=== PATIENT | male | born 1965 | race Caucasian/White ===

== ENCOUNTER 2018-11-20 13:25 | Observation (INO) ==
[2018-11-20] MEDS ORDERED: Ondansetron 4 MG/2 ML VIAL IVP ONE (13:32)
[2018-11-20] MEDS ORDERED: Aspirin 81 MG TAB.CHEW PO ONE (13:43)
[2018-11-20] MEDS ORDERED: *HR* Labetalol 20 MG/4 ML SYRINGE IVP ONE (13:47)
--- NOTE | 2018-11-20 13:50 | Emergency Department Note ---
Disposition Clinical Impression: Hypertensive urgency Nausea and vomiting Qualifiers: Vomiting type: unspecified Vomiting Intractability: non-intractable Qualified Code(s): R11.2 - Nausea with vomiting, unspecified Disposition: Admitted As Inpatient Condition: Fair Time of Disposition: 16:21 General Adult HPI - General Chief complaint: ED Nausea/Vomiting/Diarrhea Stated complaint: nausea Time Seen by Provider: 11/20/18 13:32 Source: patient, EMS Mode of arrival: EMS Limitations: no limitations Nursing Notes Reviewed: Yes Vital Signs Reviewed: Yes - History of Present Illness HPI Narrative: Patient is a 53-year-old male who started to feel sour stomach this morning at 7:30 AM he has vomited several times has felt nauseated, 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 The dental patient coordinator called an ambulance and brought him into the emergency department to be evaluated. Patient is actively vomiting in the room when he arrives, skin is cool and, diaphoretic. States that he has not seen a physician in 20 years, and has missed a couple of doses of his antihypertensive. Does not know the name of it but knows that it begins with an L. He states that he has never had any cardiac surgeries, does not know if he has high cholesterol, only takes the anti-hypertensive. Patient is denying any chest pain, shortness of breath, abdominal pain, numbness or tingling, sore throat, runny nose, cough. Patient states that he does feel lightheaded and dizzy, does feel warm and sweaty, and does feel nauseated. Pain Scale: 2 - Related Data Home Medications Medication Instructions Recorded Confirmed Advil 09/28/18 Previous Rx's Medication Instructions Recorded Indomethacin 50 mg PO BID #20 capsule 09/28/18 Lisinopril [Zestril] 20 mg PO DAILY #30 tablet 09/28/18 PredniSONE [Deltasone] 20 mg PO DAILY #12 tablet 09/28/18 Allergies Allergy/AdvReac Type Severity Reaction Status Date / Time No Known Allergies Allergy Verified 09/28/18 18:44 Constitutional: Reports: fever. Denies: chills ENT ED: Denies: ear pain, throat pain Cardiovascular: Denies: chest pain, palpitations, dyspnea on exertion Respiratory: Denies: cough, dyspnea Gastrointestinal: Reports: nausea, vomiting. Denies: abdominal pain, diarrhea, constipation Musculoskeletal: Denies: back pain, neck pain Integumentary: Denies: rash, abrasion Neurological: Reports: weakness. Denies: headache, numbness, paresthesias Endocrine: Denies: fatigue Allergic/Immunologic: Denies: facial swelling, urticaria Past Medical History - Past Medical History Medical history: Reports: hypertension Surgical history: Reports: no surgical history - Social History Smoking Status: Never smoker Smokeless Tobacco Status: No Alcohol use: Reports: none Drug use: Reports: none Physical Exam - General Limitations: no limitations General appearance: alert, in no apparent distress - Head Head exam: atraumatic, normocephalic - Eye Eye exam: Present: normal appearance, PERRL, EOMI - ENT ENT exam: normal exam, normal oropharynx, mucous membranes moist - Neck Neck exam: Present: normal inspection, full ROM, trachea midline - Chest Chest inspection: Present: normal inspection, symmetric chest wall rise. Absent: tenderness, rash - Respiratory Respiratory exam: Present: normal lung sounds bilaterally. Absent: respiratory distress, wheezes - Cardiovascular Cardiovascular exam: Present: normal rhythm, tachycardia - Abdominal Exam Abdominal exam: Present: soft, Non-Tender - Extremities Exam Extremities exam: Present: normal inspection, full ROM - Back Exam Back exam: Present: normal inspection, full ROM - Neurological Exam Neurological exam: Present: alert, oriented X3 - Psychiatric Psychiatric exam: Present: normal affect, normal mood - Skin Skin exam: Present: warm, normal color, diaphoresis Course Course Narrative: Pt presents with N/V, LH/dizziness after missing several of his doses of HTN meds with elevated BP. Suspect hypertensive emergency. Pt has several cardiac risk factors and has not seen a physician in twenty years. Will performed cardiac workup with additional abd labs. Will admin 10mg labetolol and recheck pressure. - Reevaluation(s) Reevaluation #1: Pt got oral ASA right before he went to CT and when he moved to the table, vomited again. He feels ok now after coming back. BP has come down to 180/100. Pt states that his nausea has improved. States that he was supposed to establish with a doctor after his insurance got set up in November. Time: 15:05 Vital Signs Temperature 97.9 F 11/20/18 13:40 Pulse Rate 97 11/20/18 13:40 Respiratory Rate 20 11/20/18 13:40 Blood Pressure 225/153 11/20/18 13:40 O2 Sat by Pulse Oximetry 98 11/20/18 13:40 Temperature 97.9 F 11/20/18 13:40 Pulse Rate 89 11/20/18 14:46 Respiratory Rate 18 11/20/18 14:46 Blood Pressure 189/111 11/20/18 14:46 O2 Sat by Pulse Oximetry 97 11/20/18 14:46 Oxygen Delivery Oxygen Delivery Room Air Medical Decision Making - MDM Narrative Medical decision making narrative: Pt continues to feel nauseated if he moves. Continues to deny chest pain. Troponin was negative, head CT was negative. Other lab work was mostly unremarkable except for mild leukocytosis with neutrophil predominance as well as elevated glucose at 187. EKG showed changes consistent with ischemia without current infarct. Will admit for hypertensive urgency and cardiac workup. Spoke with hospitalist Dr. Torres who accepts. Pt verbalized understanding and agreement with the plan. Pt's blood pressure improve during hospital course. - Medical Records Medical records reviewed: Yes I reviewed the patient's medical records. - Lab Data Lab results reviewed: Yes I reviewed the patient's lab results. Result diagrams: 11/20/18 14:04 11/20/18 14:04 Lab Results 11/20/18 11/20/18 11/20/18 Range/Units 14:04 14:04 14:04 WBC 11.3 H (4.3-11.1) K/mcL RBC 6.11 H (4.19-5.50) M/mcL Hgb 17.6 H (12.9-16.9) g/dL Hct 54.5 H (37.5-50.1) % MCV 89.2 (83.0-100.0) fL MCH 28.8 (28.0-33.3) pg MCHC 32.3 (31.6-35.5) g/dL RDW 12.8 (11.5-14.5) % Plt Count 184 (140-400) K/mcL MPV 10.9 (9.4-12.4) fL Immature Gran % 0.4 (0-4) % Seg Neutrophils % 87.3 % Lymphocytes % 9.4 % Monocytes % 2.6 % Eosinophils % 0.1 % Basophils % 0.2 % Neutrophils # 9.9 H (1.6-8.9) K/mcL Lymphocytes # 1.1 (0.6-4.6) K/mcL Monocytes # 0.3 (0.0-1.3) K/mcL Eosinophils # 0.0 (0.0-0.6) K/mcL Basophils # 0.0 (0.0-0.2) K/mcL Sodium 142 (136-145) mEq/L Potassium 3.5 (3.5-5.1) mEq/L Chloride 106 (98-107) mEq/L Carbon Dioxide 23 (23-29) mEq/L BUN 15 (6-20) mg/dL Creatinine 0.97 (0.70-1.30) mg/dL Est GFR ( Amer) > 60 (> 60) Est GFR (Non-Af Amer) > 60 (> 60) BUN/Creatinine Ratio 15 (6-26) Glucose 187 H (70-105) mg/dL Calculated Osmolality 300 (280-300) Calcium 9.2 (8.6-10.3) mg/dL Magnesium (1.6-2.6) mg/dL Total Bilirubin 0.4 (0.3-1.0) mg/dL Direct Bilirubin 0.1 (0.0-0.2) mg/dL Indirect Bilirubin 0.3 (0.0-1.2) mg/dL AST 16 (13-39) Units/L ALT 18 (7-52) Units/L Alkaline Phosphatase 76 (34-104) Units/L Troponin I < 0.03 (< 0.04) ng/mL Serum Total Protein 7.8 (6.4-8.9) g/dL Albumin 4.5 (3.5-5.7) g/dL Globulin 3.3 (2.4-3.5) g/dL Albumin/Globulin Ratio 1.4 (1.1-2.2) Lipase 7 L (11-82) Units/L 11/20/18 Range/Units 14:04 WBC (4.3-11.1) K/mcL RBC (4.19-5.50) M/mcL Hgb (12.9-16.9) g/dL Hct (37.5-50.1) % MCV (83.0-100.0) fL MCH (28.0-33.3) pg MCHC (31.6-35.5) g/dL RDW (11.5-14.5) % Plt Count (140-400) K/mcL MPV (9.4-12.4) fL Immature Gran % (0-4) % Seg Neutrophils % % Lymphocytes % % Monocytes % % Eosinophils % % Basophils % % Neutrophils # (1.6-8.9) K/mcL Lymphocytes # (0.6-4.6) K/mcL Monocytes # (0.0-1.3) K/mcL Eosinophils # (0.0-0.6) K/mcL Basophils # (0.0-0.2) K/mcL Sodium (136-145) mEq/L Potassium (3.5-5.1) mEq/L Chloride (98-107) mEq/L Carbon Dioxide (23-29) mEq/L BUN (6-20) mg/dL Creatinine (0.70-1.30) mg/dL Est GFR ( Amer) (> 60) Est GFR (Non-Af Amer) (> 60) BUN/Creatinine Ratio (6-26) Glucose (70-105) mg/dL Calculated Osmolality (280-300) Calcium (8.6-10.3) mg/dL Magnesium 2.1 (1.6-2.6) mg/dL Total Bilirubin (0.3-1.0) mg/dL Direct Bilirubin (0.0-0.2) mg/dL Indirect Bilirubin (0.0-1.2) mg/dL AST (13-39) Units/L ALT (7-52) Units/L Alkaline Phosphatase (34-104) Units/L Troponin I (< 0.04) ng/mL Serum Total Protein (6.4-8.9) g/dL Albumin (3.5-5.7) g/dL Globulin (2.4-3.5) g/dL Albumin/Globulin Ratio (1.1-2.2) Lipase (11-82) Units/L - Radiology Data Radiology results reviewed: Yes I reviewed the patient's radiology results. Chest X-Ray 11/20/18 13:43 IMPRESSION: Cardiomegaly and pulmonary vascular congestion. D/ / Elio Hardin MD / Elio Hardin MD Interpreting Provider: Elio Hardin MD Head CT 11/20/18 14:01 IMPRESSION: No acute intracranial abnormality. D/ / Asad Ramon MD / Asad Ramon MD Interpreting Provider: Asad Ramon MD - EKG Data EKG #1 EKG attestation: Yes I reviewed and interpreted this EKG. EKG results narrative: HR 99, rhythm sinus, left axis. FL 179, QRS 118, QTc 497. 0.5mm ST elevation in aVR, 1mm ST elevation in V1, V2, V3, V4, 1mm ST depression in I, aVL. Abnormal EKG concerning for ischemia with borderline prolonged QTc. Heart Score - Score History: Moderately Suspicious EKG: Non Specific repolarisation Disturbance Age: 45-65 Risk Factors: Equal/Greater than 3 risk factor or history of atherosclerotic disease Troponin: Less than normal limit HEART Score Total: 5
[2018-11-20 14:26] LABS: Basophils % 0.2 %; Eosinophils % 0.1 %; Hematocrit 54.5 % (37.5-50.1); Hemoglobin 17.6 g/dL (12.9-16.9); Immature Granulocytes % 0.4 % (0-4); Lymphocytes # 1.1 K/mcL (0.6-4.6); Lymphocytes % 9.4 %; Mean Corpuscular HGB Conc 32.3 g/dL (31.6-35.5); Mean Corpuscular Hemoglobin 28.8 pg (28.0-33.3); Mean Corpuscular Volume 89.2 fL (83.0-100.0); Mean Platelet Volume 10.9 fL (9.4-12.4); Monocytes # 0.3 K/mcL (0.0-1.3); Monocytes % 2.6 %; Neutrophils # 9.9 K/mcL (1.6-8.9); Platelet Count 184 K/mcL (140-400); Red Blood Count 6.11 M/mcL (4.19-5.50); Red Cell Distribution Width 12.8 % (11.5-14.5); Segmented Neutrophils % 87.3 %
[2018-11-20 14:34] LABS: Albumin 4.5 g/dL (3.5-5.7); Albumin/Globulin Ratio 1.4 (1.1-2.2); Bilirubin,Direct 0.1 mg/dL (0.0-0.2); Bilirubin,Indirect 0.3 mg/dL (0.0-1.2); Bilirubin,Total 0.4 mg/dL (0.3-1.0); Globulin 3.3 g/dL (2.4-3.5); Total Protein 7.8 g/dL (6.4-8.9)
[2018-11-20 14:36] LABS: Troponin I < 0.03 ng/mL (< 0.04)
[2018-11-20 14:37] LABS: BUN/Creatinine Ratio 15 (6-26); Blood Urea Nitrogen 15 mg/dL (6-20); Calcium 9.2 mg/dL (8.6-10.3); Carbon Dioxide 23 mEq/L (23-29); Chloride 106 mEq/L (98-107); Glucose 187 mg/dL (70-105); Osmolality,Calculated 300 (280-300); Potassium 3.5 mEq/L (3.5-5.1); Sodium 142 mEq/L (136-145); eGFR For Non-African Americans > 60 (> 60)
--- NOTE | 2018-11-20 15:42 | Emergency Department Note ---
Disposition Clinical Impression: Hypertensive urgency, Nausea and vomiting Disposition: Admitted As Inpatient Condition: Good Forms: ED Satisfaction Letter General Adult HPI - General Chief complaint: ED Nausea/Vomiting/Diarrhea Stated complaint: nausea Time Seen by Provider: 11/20/18 13:32 Source: patient, EMS Mode of arrival: EMS Limitations: no limitations - History of Present Illness Pain Scale: 2 - Related Data Home Medications Medication Instructions Recorded Confirmed Advil 09/28/18 Previous Rx's Medication Instructions Recorded Indomethacin 50 mg PO BID #20 capsule 09/28/18 Lisinopril [Zestril] 20 mg PO DAILY #30 tablet 09/28/18 PredniSONE [Deltasone] 20 mg PO DAILY #12 tablet 09/28/18 Allergies Allergy/AdvReac Type Severity Reaction Status Date / Time No Known Allergies Allergy Verified 09/28/18 18:44 Constitutional: Reports: fever. Denies: chills ENT ED: Denies: ear pain, throat pain Cardiovascular: Denies: chest pain, palpitations, dyspnea on exertion Respiratory: Denies: cough, dyspnea Gastrointestinal: Reports: nausea, vomiting. Denies: abdominal pain, diarrhea, constipation Musculoskeletal: Denies: back pain, neck pain Integumentary: Denies: rash, abrasion Neurological: Reports: weakness. Denies: headache, numbness, paresthesias Endocrine: Denies: fatigue Allergic/Immunologic: Denies: facial swelling, urticaria Past Medical History - Past Medical History Medical history: Reports: hypertension Surgical history: Reports: no surgical history - Social History Smoking Status: Never smoker Smokeless Tobacco Status: No Alcohol use: Reports: none Drug use: Reports: none Physical Exam - General Limitations: no limitations General appearance: alert, in no apparent distress Course Vital Signs Temperature 97.9 F 11/20/18 13:40 Pulse Rate 97 11/20/18 13:40 Respiratory Rate 20 11/20/18 13:40 Blood Pressure 225/153 11/20/18 13:40 O2 Sat by Pulse Oximetry 98 11/20/18 13:40 Temperature 97.9 F 11/20/18 13:40 Pulse Rate 89 11/20/18 14:46 Respiratory Rate 18 11/20/18 14:46 Blood Pressure 189/111 11/20/18 14:46 O2 Sat by Pulse Oximetry 97 11/20/18 14:46 Oxygen Delivery Oxygen Delivery Room Air Medical Decision Making - Medical Records Medical records reviewed: Yes I reviewed the patient's medical records. - Lab Data Lab results reviewed: Yes I reviewed the patient's lab results. Result diagrams: 11/20/18 14:04 11/20/18 14:04 Lab Results 11/20/18 11/20/18 11/20/18 Range/Units 14:04 14:04 14:04 WBC 11.3 H (4.3-11.1) K/mcL RBC 6.11 H (4.19-5.50) M/mcL Hgb 17.6 H (12.9-16.9) g/dL Hct 54.5 H (37.5-50.1) % MCV 89.2 (83.0-100.0) fL MCH 28.8 (28.0-33.3) pg MCHC 32.3 (31.6-35.5) g/dL RDW 12.8 (11.5-14.5) % Plt Count 184 (140-400) K/mcL MPV 10.9 (9.4-12.4) fL Immature Gran % 0.4 (0-4) % Seg Neutrophils % 87.3 % Lymphocytes % 9.4 % Monocytes % 2.6 % Eosinophils % 0.1 % Basophils % 0.2 % Neutrophils # 9.9 H (1.6-8.9) K/mcL Lymphocytes # 1.1 (0.6-4.6) K/mcL Monocytes # 0.3 (0.0-1.3) K/mcL Eosinophils # 0.0 (0.0-0.6) K/mcL Basophils # 0.0 (0.0-0.2) K/mcL Sodium 142 (136-145) mEq/L Potassium 3.5 (3.5-5.1) mEq/L Chloride 106 (98-107) mEq/L Carbon Dioxide 23 (23-29) mEq/L BUN 15 (6-20) mg/dL Creatinine 0.97 (0.70-1.30) mg/dL Est GFR ( Amer) > 60 (> 60) Est GFR (Non-Af Amer) > 60 (> 60) BUN/Creatinine Ratio 15 (6-26) Glucose 187 H (70-105) mg/dL Calculated Osmolality 300 (280-300) Calcium 9.2 (8.6-10.3) mg/dL Magnesium (1.6-2.6) mg/dL Total Bilirubin 0.4 (0.3-1.0) mg/dL Direct Bilirubin 0.1 (0.0-0.2) mg/dL Indirect Bilirubin 0.3 (0.0-1.2) mg/dL AST 16 (13-39) Units/L ALT 18 (7-52) Units/L Alkaline Phosphatase 76 (34-104) Units/L Troponin I < 0.03 (< 0.04) ng/mL Serum Total Protein 7.8 (6.4-8.9) g/dL Albumin 4.5 (3.5-5.7) g/dL Globulin 3.3 (2.4-3.5) g/dL Albumin/Globulin Ratio 1.4 (1.1-2.2) Lipase 7 L (11-82) Units/L / Range/Units 14:04 WBC (4.3-11.1) K/mcL RBC (4.19-5.50) M/mcL Hgb (12.9-16.9) g/dL Hct (37.5-50.1) % MCV (83.0-100.0) fL MCH (28.0-33.3) pg MCHC (31.6-35.5) g/dL RDW (11.5-14.5) % Plt Count (140-400) K/mcL MPV (9.4-12.4) fL Immature Gran % (0-4) % Seg Neutrophils % % Lymphocytes % % Monocytes % % Eosinophils % % Basophils % % Neutrophils # (1.6-8.9) K/mcL Lymphocytes # (0.6-4.6) K/mcL Monocytes # (0.0-1.3) K/mcL Eosinophils # (0.0-0.6) K/mcL Basophils # (0.0-0.2) K/mcL Sodium (136-145) mEq/L Potassium (3.5-5.1) mEq/L Chloride (98-107) mEq/L Carbon Dioxide (23-29) mEq/L BUN (6-20) mg/dL Creatinine (0.70-1.30) mg/dL Est GFR ( Amer) (> 60) Est GFR (Non-Af Amer) (> 60) BUN/Creatinine Ratio (6-26) Glucose (70-105) mg/dL Calculated Osmolality (280-300) Calcium (8.6-10.3) mg/dL Magnesium 2.1 (1.6-2.6) mg/dL Total Bilirubin (0.3-1.0) mg/dL Direct Bilirubin (0.0-0.2) mg/dL Indirect Bilirubin (0.0-1.2) mg/dL AST (13-39) Units/L ALT (7-52) Units/L Alkaline Phosphatase (34-104) Units/L Troponin I (< 0.04) ng/mL Serum Total Protein (6.4-8.9) g/dL Albumin (3.5-5.7) g/dL Globulin (2.4-3.5) g/dL Albumin/Globulin Ratio (1.1-2.2) Lipase (11-82) Units/L - Radiology Data Radiology results reviewed: Yes I reviewed the patient's radiology results. Critical Care Time Critical Care Time: No Attestation Statement - Attestation Attestation: I examined this patient and my medical decision-making was reviewed with the Resident Physician. I agree with the documented findings, disposition and treatment plan as described except to the extent set forth below. 53-year-old male in presented to the emergency room for complaints of some shortness of breath as well as dizziness and nausea and vomiting. He is not felt well the past few days. Worse today. States he thought extremely dizzy associated with nausea and vomiting. His blood pressure was over 200 systolic. States is been out of his medications for past few days. The specific take lisinopril. Concerns for hypertensive urgency based on his dizzy complaints and forgetfulness as well as the nausea. He demonstrates no end organ damage at this time. Patient will need to be admitted for blood pressure control. We will also need ACS rule out to the severe hypertension. Patient was given 10 mg of IV labetalol which brought his blood pressure down to the [address] of the brain was negative. Chest x-ray shows cardiomegaly but no signs of volume overload. First troponin was unremarkable. He was also given Zofran and some fluids.
[2018-11-20] MEDS ORDERED: Acetaminophen 325 MG TABLET PO PRN (17:14)
[2018-11-20] MEDS ORDERED: Naloxone 0.4 MG/ML INJ IVP PRN (17:14)
[2018-11-20] MEDS ORDERED: D5% in Water 1,000 ML IVC PRN (17:17)
[2018-11-20] MEDS ORDERED: *HR* Dextrose 50 % in Water (Syg) 50 ML SYRINGE IVP PRN (17:17)
[2018-11-20] MEDS ORDERED: Dextrose Gel 15 GM/37.5 ML TUBE PO PRN ×2 (17:17)
--- NOTE | 2018-11-20 17:44 | Internal Med History&Physical ---
Date of Encounter: 11/20/18 Time of Encounter: 17:43 Internal Medicine - H&P: HPI Chief complaint: Nausea Admitted From: Emergency Dept Plans for Post Hospital Care: Home History of present illness: Mr. Robbins is a 53 year old male with remote history of hypertension and obesity presents with nausea and lightheadedness. Patient states that his lightheadedness began approximately 3 days ago and occurs mainly in the morning while at work. He reports this feels like a foggy feeling. He states nothing makes it better or worse. He denies that it changes with position or activity. He states he never had anything like this before. Patient states that this morning he started having nausea and vomiting. He was able to tolerate breakfast but shortly after this he had persistent nausea with several episodes of vomiting. He states that previously he has never had any issues with nausea and vomiting. He denies any recent changes in his diet. He denies abdominal pain, diarrhea, change in bowel habits. He denies fever, chills, chest pain, shortness of breath. Patient requests to be full code. Past Med Surg Social Fam HX - Past Medical History Source: patient Medical history: hypertension - Past Surgical History Surgical History: no surgical history - Social History Smoking Status: Never smoker Smokeless Tobacco Status: No Alcohol use: none Drug use: none - Family History Mother Hx Family Cardiac Disorders: Yes (CAD, HTN) Internal Medicine - H&P: Meds Advil 09/28/18 [History] Indomethacin 50 mg PO BID #20 capsule 09/28/18 [Rx] Lisinopril [Zestril] 20 mg PO DAILY #30 tablet 09/28/18 [Rx] PredniSONE [Deltasone] 20 mg PO DAILY #12 tablet 09/28/18 [Rx] Allergy/AdvReac Type Severity Reaction Status Date / Time No Known Allergies Allergy Verified 09/28/18 18:44 All Systems PM: A 10-system review of systems was performed and is negative for pertinent findings except as documented above in the HPI. - Constitutional Constitutional: no chills, no fever(s) - EENT Eyes: no blurry vision, no change in vision - Cardiovascular Cardiovascular ROS IM: lightheadedness, no chest pain, no dyspnea, no palpitations - Respiratory Respiratory: no cough, no dyspnea - Gastrointestinal Gastrointestinal: nausea, vomiting, no abdominal pain, no change in bowel habits, no change in stool character, no diarrhea - Genitourinary Genitourinary ROS male: no dysuria - Musculoskeletal Musculoskeletal ROS IM: no numbness, no tingling - Integumentary Integumentary IM: no new lesions - Neurological Neurological ROS: no focal weakness, no numbness, no tingling - Constitutional Vitals: Temp Pulse Resp BP Pulse Ox 97.8 F 87 18 193/140 92 11/20/18 17:39 11/20/18 17:39 11/20/18 17:39 11/20/18 17:39 11/20/18 17:39 General appearance: Present: A&O X 3, morbidly obese, answers questions appropriately Exam: Appears uncomfortable - Head Head exam: Present: atraumatic, normal inspection, normocephalic - Eye Eye exam: Present: EOMI, PERRL - ENT ENT exam: Present: mucous membranes moist, normal oropharynx - Respiratory Respiratory exam: Present: CTAB. Absent: rales, rhonchi, wheezes - Cardiovascular Cardiovascular exam: Present: RRR. Absent: gallop, rubs, systolic murmur - GI/Abdominal GI/Abdominal exam: Present: normal bowel sounds, soft. Absent: distended, tenderness - Extremities Exam Extremities exam: Present: warm. Absent: pedal edema, tenderness - Neurological Exam Neurological exam: Present: alert, CN II-XII intact, oriented X3, no focal deficits, strengths equal and symetr throughout. Absent: facial droop - Psychiatric Psychiatric exam: Present: normal affect, normal mood - Skin Skin exam: Present: dry, intact, warm Internal Med - H&P Results - Labs CBC & Chem 7: 11/20/18 14:04 11/20/18 14:04 Labs: Short CBC 11/20/18 Range/Units 14:04 WBC 11.3 H (4.3-11.1) K/mcL Hgb 17.6 H (12.9-16.9) g/dL Hct 54.5 H (37.5-50.1) % Plt Count 184 (140-400) K/mcL Neutrophils # 9.9 H (1.6-8.9) K/mcL BMP 11/20/18 14:04 Sodium 142 Potassium 3.5 Chloride 106 Carbon Dioxide 23 BUN 15 Creatinine 0.97 Glucose 187 H Calcium 9.2 Cardiac Enzymes 11/20/18 Range/Units 14:04 Troponin I < 0.03 (< 0.04) ng/mL Liver Function 11/20/18 Range/Units 14:04 Total Bilirubin 0.4 (0.3-1.0) mg/dL Direct Bilirubin 0.1 (0.0-0.2) mg/dL AST 16 (13-39) Units/L ALT 18 (7-52) Units/L Alkaline Phosphatase 76 (34-104) Units/L Albumin 4.5 (3.5-5.7) g/dL - EKG Data -: EKG Interpreted by Myself Rate: normal - EKG Data Prior EKG available for review: no EKG comments: 11/20/18 17:58 LVH - Impressions ITS Impressions Chest X-Ray 11/20/18 13:43 IMPRESSION: Cardiomegaly and pulmonary vascular congestion. D/ / Elio Hardin MD / Elio williamson MD Interpreting Provider: Elio Hardin MD Head CT 11/20/18 14:01 IMPRESSION: No acute intracranial abnormality. D/ / Asad Ramon MD / Asad Ramon MD Interpreting Provider: Asad Ramon MD - Assessment and plan (1) Hypertensive urgency Current Visit: Yes Status: Acute Assessment and plan: Patient presented with significantly elevated blood pressure of 225/153. He states that 20 years ago he was diagnosed with high blood pressure but never took any medication and has remained untreated. He did state that he went to urgent care around [facility] in the gave him a 30 day prescription of lisinopril that he was taking intermittently. Patient states that he does not like doctors and hospitals and therefore does not have regular outpatient follow-up. At this point I feel like the patient's symptoms are related to uncontrolled hypertension. Labs are unremarkable, trend troponins, EKG reviewed by myself reveals LVH but no ischemic changes. Head CT reveals mild periventricular white matter hypoattenuation, likely related to small vessel ischemic disease. Given that this is likely a long-standing issue for the patient will attempt to decrease blood pressure by approximately 20% in the first 24 hours and then slowly bring it down from there. Because of this I have ordered hydralazine to be given for systolic blood pressure greater than 210 an d we will restart lisinopril tomorrow with plan to uptitrate lisinopril and add medications as necessary. Given the patient's significantly elevated blood pressure he is at high risk for cardiac and neurologic complications due to uncontrolled hypertension. (2) Left ventricular hypertrophy Current Visit: Yes Status: Acute Assessment and plan: EKG reveals evidence of LVH. Likely due to long-standing untreated hypertension. Chest pain-free at this time but patient is at risk for cardiac complications. Initial troponin negative, we will trend and monitor for chest pain. Check echocardiogram (3) Elevated blood sugar Current Visit: Yes Status: Acute Assessment and plan: Blood sugar 187 on presentation. Patient denies history of diabetes however his lack of medical care and morbid obesity he is at high risk for type 2 diabetes. Check hemoglobin A1c. We will cover with low-dose sliding scale insulin for now and will consider long-term treatment with oral medications depending on A1c result. (4) Obesity Current Visit: Yes Status: Acute Assessment and plan: Encourage weight loss. Qualifiers: Obesity type: due to excess calories Obesity classification: adult class 3 (BMI >= 40) Serious obesity comorbidity presence: with serious comorbidity Body mass index: BMI 40.0-44.9 Qualified Code(s): E66.01 - Morbid (severe) obesity due to excess calories; Z68.41 - Body mass index (BMI) 40.0-44.9, adult (5) Nausea and vomiting Current Visit: Yes Status: Acute Assessment and plan: Likely side effect of the patient's uncontrolled hypertension discussed above. Treatment for blood pressure as stated above. We will treat symptomatically with when necessary Phenergan. No concerning signs including abdominal pain, change in bowel habits, bloody emesis or bloody bowel movements. Qualifiers: Vomiting type: unspecified Vomiting Intractability: non-intractable Qualified Code(s): R11.2 - Nausea with vomiting, unspecified (6) DVT prophylaxis Current Visit: Yes Status: Acute Assessment and plan: EPCDs - Time Spent With Patient Total time spent is greater than 50% in coordination of care (as documented) at patient's floor/unit and/or counseling patient:
[2018-11-20] MEDS ORDERED: Perflutren Lipid Microsphere 1.3 ML in 0.9 % Sodium Chloride 8.7 ML IVP ONE (17:45)
[2018-11-20] MEDS: Insulin LISPRO 300 UNITS/3 ML VIAL SQ SCH (22:56)
[2018-11-21 01:36] LABS: Basophils % 0.2 %; Hematocrit 50.6 % (37.5-50.1); Hemoglobin 16.5 g/dL (12.9-16.9); Immature Granulocytes % 0.2 % (0-4); Lymphocytes # 1.3 K/mcL (0.6-4.6); Lymphocytes % 11.8 %; Mean Corpuscular HGB Conc 32.6 g/dL (31.6-35.5); Mean Corpuscular Hemoglobin 28.9 pg (28.0-33.3); Mean Corpuscular Volume 88.6 fL (83.0-100.0); Monocytes # 0.6 K/mcL (0.0-1.3); Monocytes % 5.5 %; Neutrophils # 9.3 K/mcL (1.6-8.9); Platelet Count 199 K/mcL (140-400); Red Blood Count 5.71 M/mcL (4.19-5.50); Segmented Neutrophils % 82.3 %
[2018-11-21 01:59] LABS: BUN/Creatinine Ratio 16 (6-26); Blood Urea Nitrogen 16 mg/dL (6-20); Calcium 8.7 mg/dL (8.6-10.3); Carbon Dioxide 27 mEq/L (23-29); Chloride 105 mEq/L (98-107); Chol/HDL Ratio 6.3 (0-4.9); Cholesterol 195 mg/dL (< 200); Glucose 136 mg/dL (70-105); HDL Cholesterol 31 mg/dL (40-59); LDL Cholesterol,Calculated 143 mg/dL (0-99); Magnesium 2.1 mg/dL (1.6-2.6); Osmolality,Calculated 297 (280-300); Potassium 3.9 mEq/L (3.5-5.1); Sodium 142 mEq/L (136-145); Triglycerides 106 mg/dL (< 150); eGFR For Non-African Americans > 60 (> 60)
[2018-11-21] MEDS: Insulin LISPRO 300 UNITS/3 ML VIAL SQ SCH ×4 (07:32→22:52)
[2018-11-21 08:34] LABS: Estimated Average Glucose 140 mg/dl; Hemoglobin A1C 6.5 %
[2018-11-21] MEDS ORDERED: Lisinopril 20 MG TABLET PO SCH (09:00)
[2018-11-21] MEDS: Lisinopril 20 MG TABLET PO SCH (09:54)
--- NOTE | 2018-11-21 11:05 | Electrocardiograph Report ---
[facility] Test Date: 2018-11-20 Pat Name: Miguel Robbins Department: EXAM16 Room: 2A23 Gender: M Pantry Cook: : 1965 Requested By: Lizy Mejia Order Number: [id number] Reading MD: Lincoln Batres Measurements Intervals [place] Rate: 99 P: 27 MO: 179 QRS: -49 QRSD: 118 T: 103 QT: 387 QTc: 497 Interpretive Statements Sinus rhythm Incomplete right bundle branch block LVH with IVCD, LAD and secondary repol abnrm Borderline prolonged QT interval Electronically Signed On 11-21-2018 11:03:25 EST by Lincoln Batres
--- NOTE | 2018-11-21 13:23 | Internal Med Progress Note ---
Hospitalist Progress Note - Encounter Date of Encounter: 11/21/18 Time of Encounter: 10:00 - Subjective Interval History: Patient seen and examined at bedside. Patient states that his nausea and lightheadedness have improved but have not resolved completely. It is tolerating liquids well. He denies chest pain, shortness of breath, headache. - Exam Vitals: Temp Pulse Resp BP Pulse Ox 98.0 F 84 18 184/113 92 11/21/18 11:03 11/21/18 11:03 11/21/18 11:03 11/21/18 11:03 11/21/18 11:03 Exam: Gen.: Alert and oriented 3, appears mildly uncomfortable, morbidly obese HEENT: Mucous membranes moist, no oral lesions Heart: Regular rate and rhythm, no murmurs, rubs, gallops Lungs: Clear to auscultation bilaterally, no rales, rhonchi, wheezes Abdomen: Soft, nontender, nondistended. Normoactive bowel sounds. Extremities: No clubbing or cyanosis noted - Assessment and Plan (1) Hypertensive urgency Current Visit: Yes Status: Acute Assessment and Plan: Blood pressure remains elevated but has stayed within goal. Has been 24 hours since presentation we will restart home medications and increase dose of lisinopril from 20 mg to 40 mg. Continue hydralazine when necessary for systolic blood pressure greater than 200. Plan to start beta boogie this a fternoon given diastolic heart failure (2) Heart failure Current Visit: Yes Status: Chronic Assessment and Plan: Echocardiogram reviewed and showed evidence of concentric left ventricular hypertrophy as well as mild left ventricular diastolic dysfunction, likely due to long-standing hypertension. Asymptomatic at this time, does not appear to be in acute exacerbation. Start beta boogie tonight as above and start hydrochlorothiazide tomorrow. (3) Left ventricular hypertrophy Current Visit: Yes Status: Acute Assessment and Plan: EKG reveals evidence of LVH. Confirmed with echocardiogram, plan as above (4) Obesity Current Visit: Yes Status: Acute Assessment and Plan: Continue strongly encourage weight loss with diet and exercise. (5) Type 2 diabetes mellitus Current Visit: Yes Status: Acute Assessment and Plan: A1c is 6.5, diagnostic for type 2 diabetes. Continue sliding scale insulin as an inpatient. Given that he is right at the official encourage diet and exercise as the initial treatment and will plan for close outpatient follow-up to consider pharmacologic therapy. (6) Nausea and vomiting Current Visit: Yes Status: Acute Assessment and Plan: Likely due to hypertensive urgency. Improving as blood pressure improves. Continue treatment for blood pressure as above and symptomatic treatment as n eeded. (7) DVT prophylaxis Current Visit: Yes Status: Acute Assessment and Plan: EPCDs - Time Spent with Patient Total time spent is greater than 50% in coordination of care (as documented) at patient's floor/unit and/or counseling patient: Internal Medicine: Result - Labs CBC & Chem 7: 11/21/18 01:27 11/21/18 01:27 Labs: Short CBC 11/20/18 11/21/18 Range/Units 14:04 01:27 WBC 11.3 H 11.2 H (4.3-11.1) K/mcL Hgb 17.6 H 16.5 (12.9-16.9) g/dL Hct 54.5 H 50.6 H (37.5-50.1) % Plt Count 184 199 (140-400) K/mcL Neutrophils # 9.9 H 9.3 H (1.6-8.9) K/mcL BMP 11/20/18 11/21/18 14:04 01:27 Sodium 142 142 Potassium 3.5 3.9 Chloride 106 105 Carbon Dioxide 23 27 BUN 15 16 Creatinine 0.97 0.98 Glucose 187 H 136 H Calcium 9.2 8.7 Cardiac Enzymes 11/20/18 11/20/18 11/21/18 Range/Units 14:04 20:13 01:27 Troponin I < 0.03 < 0.03 < 0.03 (< 0.04) ng/mL Liver Function 11/20/18 Range/Units 14:04 Total Bilirubin 0.4 (0.3-1.0) mg/dL Direct Bilirubin 0.1 (0.0-0.2) mg/dL AST 16 (13-39) Units/L ALT 18 (7-52) Units/L Alkaline Phosphatase 76 (34-104) Units/L Albumin 4.5 (3.5-5.7) g/dL - Impressions Impressions Chest X-Ray 11/20/18 13:43 IMPRESSION: Cardiomegaly and pulmonary vascular congestion. D/ / Elio Hardin MD / Elio Hardin MD Interpreting Provider: Elio Hardin MD Head CT 11/20/18 14:01 IMPRESSION: No acute intracranial abnormality. D/ / Asad Ramon MD / Asad Ramon MD Interpreting Provider: Asad Ramon MD Echocardiogram 11/20/18 17:42 Impressions: LVEF 55-60%. Mild concentric left ventricular hypertrophy. Mild left ventricular diastolic dysfunction. Normal right ventricular structure and function. Unable to estimate RVSP due to lack of TR jet. No significant valvular dysfunction. Left Ventricular Wall Motion: Rest Echo Findings All wall segments showed normal motion. Findings: Study Quality * Technically sub-optimal due to poor echocardiographic windows. ECG Findings * Normal sinus rhythm. Left Ventricle * LVEF 55-60%. * Mild concentric left ventricular hypertrophy. * Mild left ventricular diastolic dysfunction. Right Ventricle * Normal right ventricular structure and function. Left Atrium * Normal left atrial size. Right Atrium * Normal right atrial size. Interatrial Septum * Interatrial septum not well evaluated. Aortic Valve * No aortic regurgitation. * No aortic stenosis. * Aortic valve not well visualized. Mitral Valve * No mitral regurgitation. * No mitral stenosis. * Mitral valve not well visualized. Tricuspid Valve * Trace tricuspid regurgitation. * Unable to estimate RVSP due to lack of TR jet. * No tricuspid stenosis. Pulmonic Valve * Pulmonic valve is not well visualized. Aorta * Normally sized aortic root. Pericardium * The pericardium appears normal. IVC * The IVC is not well evaluated. Consult Discharge Plan - Plan Referrals: NONE,PCP [Primary Care Provider] - (2) Heart failure Qualifiers: Heart failure type: diastolic Heart failure chronicity: chronic Qualified Code(s): I50.32 - Chronic diastolic (congestive) heart failure (4) Obesity Qualifiers: Obesity type: due to excess calories Obesity classification: adult class 3 (BMI >= 40) Serious obesity comorbidity presence: with serious comorbidity Body mass index: BMI 50.0-59.9 Qualified Code(s): E66.01 - Morbid (severe) obesity due to excess calories; Z68.43 - Body mass index (BMI) 50-59.9, adult (5) Type 2 diabetes mellitus Qualifiers: Diabetes mellitus direct support worker insulin use: without usp use Diabetes mellitus complication status: without complication Qualified Code(s): E11.9 - Type 2 diabetes mellitus without complications (6) Nausea and vomiting Qualifiers: Vomiting type: unspecified Vomiting Intractability: non-intractable Qualified Code(s): R11.2 - Nausea with vomiting, unspecified
[2018-11-22 02:44] LABS: Basophils % 0.3 %; Eosinophils # 0.1 K/mcL (0.0-0.6); Eosinophils % 0.4 %; Hematocrit 49.8 % (37.5-50.1); Hemoglobin 16.3 g/dL (12.9-16.9); Immature Granulocytes % 0.3 % (0-4); Lymphocytes # 1.7 K/mcL (0.6-4.6); Lymphocytes % 14.4 %; Mean Corpuscular HGB Conc 32.7 g/dL (31.6-35.5); Mean Corpuscular Hemoglobin 29.3 pg (28.0-33.3); Mean Corpuscular Volume 89.4 fL (83.0-100.0); Mean Platelet Volume 10.8 fL (9.4-12.4); Monocytes # 0.8 K/mcL (0.0-1.3); Monocytes % 6.4 %; Neutrophils # 9.2 K/mcL (1.6-8.9); Platelet Count 178 K/mcL (140-400); Red Blood Count 5.57 M/mcL (4.19-5.50); Red Cell Distribution Width 13.2 % (11.5-14.5); Segmented Neutrophils % 78.2 %
[2018-11-22 03:01] LABS: BUN/Creatinine Ratio 17 (6-26); Blood Urea Nitrogen 16 mg/dL (6-20); Carbon Dioxide 27 mEq/L (23-29); Chloride 104 mEq/L (98-107); Glucose 127 mg/dL (70-105); Magnesium 2.1 mg/dL (1.6-2.6); Osmolality,Calculated 291 (280-300); Potassium 3.6 mEq/L (3.5-5.1); Sodium 139 mEq/L (136-145); eGFR For Non-African Americans > 60 (> 60)
[2018-11-22 03:04] LABS: Calcium 8.6 mg/dL (8.6-10.3)
[2018-11-22] MEDS: Insulin LISPRO 300 UNITS/3 ML VIAL SQ SCH ×4 (08:41→21:08)
[2018-11-22] MEDS: Lisinopril 20 MG TABLET PO SCH (08:41)
[2018-11-22] MEDS ORDERED: hydroCHLOROthiazide 25 MG TABLET PO SCH (09:00)
--- NOTE | 2018-11-22 13:12 | Internal Med Progress Note ---
Hospitalist Progress Note - Encounter Date of Encounter: 11/22/18 Time of Encounter: 13:10 - Subjective Interval History: Patient seen and examined at bedside. Patient states that his nausea and lightheadedness have now resolved completely. It is tolerating liquids well, feels like he can advance his diet. He denies chest pain, shortness of breath, headache. - Exam Vitals: Temp Pulse Resp BP Pulse Ox 97.6 F 80 18 215/117 97 11/22/18 11:14 11/22/18 11:14 11/22/18 11:14 11/22/18 11:14 11/22/18 11:14 Exam: Gen.: Alert and oriented 3, appears mildly uncomfortable, morbidly obese HEENT: Mucous membranes moist, no oral lesions Heart: Regular rate and rhythm, no murmurs, rubs, gallops Lungs: Clear to auscultation bilaterally, no rales, rhonchi, wheezes Abdomen: Soft, nontender, nondistended. Normoactive bowel sounds. Extremities: No clubbing or cyanosis noted - Assessment and Plan (1) Hypertensive urgency Current Visit: Yes Status: Acute Assessment and Plan: Blood pressure remains elevated however he is having some improved readings with systolics in the low 150s but at lunchtime his systolic had increased to 2:15, he is asymptomatic with this. Continue lisinopril 40 mg, increase hydrochlorothiazide from 12.5 mg to 25 mg and overall from 12.5 mg to 25 mg. Continue hydralazine when necessary for systolic blood pressure greater than 180 (2) Heart failure Current Visit: Yes Status: Chronic Assessment and Plan: Echocardiogram reviewed and showed evidence of concentric left ventricular hypertrophy as well as mild left ventricular diastolic dysfunction, likely due to long-standing hypertension. Asymptomatic at this time, does not appear to be in acute exacerbation. Continue beta boogie as above (3) Left ventricular hypertrophy Current Visit: Yes Status: Acute Assessment and Plan: EKG reveals evidence of LVH. Confirmed with echocardiogram, plan as above (4) Obesity Current Visit: Yes Status: Acute Assessment and Plan: Continue strongly encourage weight loss with diet and exercise. (5) Type 2 diabetes mellitus Current Visit: Yes Status: Acute Assessment and Plan: A1c is 6.5, diagnostic for type 2 diabetes. Continue sliding scale insulin as an inpatient. Given that he is right at the cut off for formal diagnosis will encourage diet and exercise as the initial treatment and will plan for close outpatient follow-up to consider pharmacologic therapy. (6) Nausea and vomiting Current Visit: Yes Status: Acute Assessment and Plan: Likely due to hypertensive urgency. Resolved at this time. Continue treatment for blood pressure as above and symptomatic treatment as needed. (7) DVT prophylaxis Current Visit: Yes Status: Acute Assessment and Plan: EPCDs - Time Spent with Patient Total time spent is greater than 50% in coordination of care (as documented) at patient's floor/unit and/or counseling patient: Internal Medicine: Result - Labs CBC & Chem 7: 11/22/18 02:24 11/22/18 02:24 Labs: Short CBC 11/22/18 Range/Units 02:24 WBC 11.7 H (4.3-11.1) K/mcL Hgb 16.3 (12.9-16.9) g/dL Hct 49.8 (37.5-50.1) % Plt Count 178 (140-400) K/mcL Neutrophils # 9.2 H (1.6-8.9) K/mcL BMP 11/22/18 02:24 Sodium 139 Potassium 3.6 Chloride 104 Carbon Dioxide 27 BUN 16 Creatinine 0.93 Glucose 127 H Calcium 8.6 Consult Discharge Plan - Plan Referrals: Pawan Moya DO [Resident] - 11/26/18 1:30 pm (Please keep your follow up appointment so you can be established with the practice. Once youve become established you can choose what doctor you see, including Dr. Kelly, which I understand you already have one set up for Dec. Thank you!) (2) Heart failure Qualifiers: Heart failure type: diastolic Heart failure chronicity: chronic Qualified Code(s): I50.32 - Chronic diastolic (congestive) heart failure (4) Obesity Qualifiers: Obesity type: due to excess calories Obesity classification: adult class 3 (BMI >= 40) Serious obesity comorbidity presence: with serious comorbidity Body mass index: BMI 50.0-59.9 Qualified Code(s): E66.01 - Morbid (severe) obesity due to excess calories; Z68.43 - Body mass index (BMI) 50-59.9, adult (5) Type 2 diabetes mellitus Qualifiers: Diabetes mellitus transport driver insulin use: without transport driver use Diabetes mellitus complication status: without complication Qualified Code(s): E11.9 - Type 2 diabetes mellitus without complications (6) Nausea and vomiting Qualifiers: Vomiting type: unspecified Vomiting Intractability: non-intractable Qualified Code(s): R11.2 - Nausea with vomiting, unspecified
[2018-11-23 07:36] VITALS: BP 161/106
--- NOTE | 2018-11-23 08:02 | Discharge Summary ---
- NOTES TO OUTPATIENT PROVIDER Notes to Outpatient Provider: Patient had significant untreated hypertension. He was started on 3 drug regimen including lisinopril, Isordil chlorothiazide, and metoprolol. Blood pressure had improved but is still not at ultimate goal. Patient was asymptomatic at discharge. Patient is also noted to have a hemoglobin A1c of 6.5, recommended diet and exercise initially. Date of Encounter: 11/23/18 Time of Encounter: 08:00 - Discharge Diagnosis (1) Hypertensive urgency Priority: Primary Status: Acute (2) Hypertension Priority: Primary Status: Acute Qualifiers: Hypertension type: essential hypertension Qualified Code(s): I10 - Essential (primary) hypertension (3) Heart failure Priority: Secondary Status: Chronic Qualifiers: Heart failure type: diastolic Heart failure chronicity: chronic Qualified Code(s): I50.32 - Chronic diastolic (congestive) heart failure (4) Left ventricular hypertrophy Priority: Secondary Status: Acute (5) Obesity Priority: Secondary Status: Acute Qualifiers: Obesity type: due to excess calories Obesity classification: adult class 3 (BMI >= 40) Serious obesity comorbidity presence: with serious comorbidity Body mass index: BMI 50.0-59.9 Qualified Code(s): E66.01 - Morbid (severe) obesity due to excess calories; Z68.43 - Body mass index (BMI) 50-59.9, adult (6) Type 2 diabetes mellitus Priority: Secondary Status: Acute Qualifiers: Diabetes mellitus custodial insulin use: without medical terminologist use Diabetes mellitus complication status: without complication Qualified Code(s): E11.9 - Type 2 diabetes mellitus without complications (7) Nausea and vomiting Priority: Secondary Status: Resolved Qualifiers: Vomiting type: unspecified Vomiting Intractability: non-intractable Qualified Code(s): R11.2 - Nausea with vomiting, unspecified Hospital course: Mr. Robbins is a 53 year old male with history of untreated hypertension who prese nted and nausea vomiting. Patient was noted to have a significant blood pressure 225/153 on presentation. This was felt to be the cause of symptoms. Given the long-standing nature of this the patient's pressure was brought down slowly. As his blood pressure improved his symptoms have resolved. At discharge patient remains hypertensive much improved. He was also noted to have LVH on EKG and an echocardiogram was performed that revealed mild diastolic dysfunction and left ventricular hypertrophy. Patient will be discharged home in stable condition. Discharge discussed with: patient, family - Time Spent with Patient Total time spent providing and/or coordinating discharge services: - Discharge Medications Prescriptions: hydroCHLOROthiazide [Hydrochlorothiazide] 25 mg PO DAILY #30 tablet Lisinopril [Zestril] 40 mg PO DAILY #30 tablet Metoprolol [Lopressor] 25 mg PO BID #60 tablet Home Medications: Lisinopril [Zestril] 40 mg PO DAILY #30 tablet 11/23/18 [Rx] Metoprolol [Lopressor] 25 mg PO BID #60 tablet 11/23/18 [Rx] hydroCHLOROthiazide [Hydrochlorothiazide] 25 mg PO DAILY #30 tablet 11/23/18 [Rx] Allergies/Adverse Reactions: Allergy/AdvReac Type Severity Reaction Status Date / Time No Known Allergies Allergy Verified 11/21/18 10:50 Date of admission: 11/20/18 16:24 Primary care physician: PCP NONE Discharging clinician: Tadeo Shi Anticipated date of discharge: 11/23/18 - Constitutional Vitals: Temp Pulse Resp BP Pulse Ox 97.3 F L 85 19 161/106 95 11/23/18 07:35 11/23/18 07:35 11/23/18 07:35 11/23/18 07:35 11/23/18 07:35 General appearance: Present: A&O X 3, morbidly obese, answers questions appropriately Exam: . - Respiratory Respiratory exam: Present: CTAB. Absent: rales, rhonchi, wheezes - Cardiovascular Cardiovascular exam: Present: RRR. Absent: gallop, rubs, systolic murmur - GI/Abdominal GI/Abdominal exam: Present: normal bowel sounds, soft. Absent: distended, tenderness - Patient Status Disposition: Home, Self-Care Condition: Fair Functional capacity at discharge: independent ambulation Overall status at discharge: patient is progressing back to baseline - Discharge Instructions Follow Up With: Pawan Moya DO [Resident] - 11/26/18 1:30 pm (Please keep your follow up appointment so you can be established with the practice. Once youve become established you can choose what doctor you see, including Dr. Kelly, which I understand you already have one set up for Dec. Thank you!) Additional Instructions: Please follow-up with Dr. Moya as scheduled. Please take your medication as prescribed. Please avoid ibuprofen, Aleve, Motrin. Please return for any new or worsening symptoms. - Diet and Activity Activity: increase activity as tolerated Diet: advance to your usual diet
[2018-11-23] MEDS: Lisinopril 20 MG TABLET PO SCH (08:38)
[2018-11-23] MEDS: Insulin LISPRO 300 UNITS/3 ML VIAL SQ SCH (08:38)
[2018-11-23] MEDS ORDERED: hydroCHLOROthiazide 25 MG TABLET PO SCH (09:00)
== END 2018-11-23 10:19 | disposition home or self-care (01) ==
LOC: SUATTDRO → 2ANU 13:25 → EMEROOARM 13:25 → SUATTDRO 16:24 → 2ANU 17:39
PROVIDERS: ADMIT Internal Medicine; ATTEND Internal Medicine